=== PATIENT | male | born 1950 | race Caucasian/White ===

== ENCOUNTER 2018-04-14 00:11 | Inpatient (IN) | payer MEDICARE, OTHER ==
[~2018-04-14] VITALS: Ht 175.3 cm; Wt 88.9 kg
[~2018-04-14 00:11] MED LIST: FLOMAX0.4 MG PO; PERCOCET 5-3251 EACH PO; SYNTHROID150 MCG PO
--- NOTE | 2018-04-14 02:05 | NUR ---
PATIENT ARRIVED TO THE FLOOR AMBULATING ON HIS OWN. PATIENT OREINTED TO UNIT AND ROOM. PATIENTS ASSESMENT COMPLETED. PATIENT DENIES ANY PAIN. NO NEEDS NOTED. CALL LIGHT IN REACH. EDUCATED ON NPO STATUS. PATIENT VERBALIZES UNDERSTANDING.
--- NOTE | 2018-04-14 02:49 | NUR ---
PATIENT EDUCATED ON IV FLUIDS. PATIENTS MEDICATIONS GIVEN PER ORDER. PATIENT DENIES ANY PAIN. ALL QUESTIONS ANSWERED. NO NEEDS NOTED. CALL LIGHT IN REACH.
--- NOTE | 2018-04-14 03:57 | NUR ---
PATIENT ASSISTED TO THE RESTROOM A SBA W/FWW. PATIENT ABLE TO VOID. PATIENT IS BACK IN BED RESTING. SCDS, TEDHOSE, CRYO, HEEL PROTECTORS IN PLACE. CRYO REFILLED WITH ICE. PATIENT GIVEN PRN PAIN MEDICATION FOR 4/10 PAIN AND BURNING IN HER LEFT KNEE. NO FURTHER NEEDS NOTED. AAOX3. CALL LIGHT IN REACH.
--- NOTE | 2018-04-14 04:17 | NUR ---
PATIENT IS RESTING IN BED. PATIENT BRIEFLY AWOKEN WHEN ROOM WAS ENTERED TO SCAN 0400 MEDICATIONS. PATIENT DENIES ANY PAIN. NO NEEDS NOTED. CALL LIGHT IN REACH.
--- NOTE | 2018-04-14 05:34 | NUR ---
PATIENT IS RESTING IN BED. PATIENT AWOKE WHEN THE ROOM WAS ENTERED. PATIENT DENIES ANY PAIN. NO NEEDS AT THIS TIME. CALL LIGHT IN REACH.
--- NOTE | 2018-04-14 06:15 | NUR ---
PATIENT IS INDEPENDENT IN THE ROOM. PATIENT IS NPO AT THIS TIME. AAOX3. IV INFUSING.
--- NOTE | 2018-04-14 07:53 | NUR ---
REPORT RECEIVED FROM TONY FIGUEROA AND SN SINGH. PT AWAKE LAYING IN BED. DR BARAHONA IN TO SEE PT. CONSENT SIGNED. TO REMAIN NPO. PT DENIES OTHER NEEDS AT THIS TIME.
--- NOTE | 2018-04-14 07:59 | NUR ---
RECIEVED REPORT FROM TONY FIGUEROA. PT LAYING IN BED. DR BARAHONA IN ROOM. ASSESSED SCROTAL AREA WITH DR BARAHONA. PT TO GO TO SURGERY LATER TODAY. WITNESSED CONSENT.
--- NOTE | 2018-04-14 08:35 | NUR ---
PT ASESSMENT COMPLETE. PT COMPLETING WIPE DOWN. RN SALAS IN TO GET PT FOR SURGERY. AT BEDSIDE. VERBALIZED UNDERSTANDING. ALL QUESTIONS ANSWERED.
--- NOTE | 2018-04-14 10:30 | HP ---
[facility] [address], [place] [address] Signed ADMISSION DATE: 04/14/2018 CHIEF COMPLAINT: Scrotal and perineal abscess. HISTORY OF PRESENTING ILLNESS: Mr. Law is a very pleasant 67-year-old gentleman who was transferred to [facility] late last night from [facility] after presenting to the emergency department there in [place] for evaluation of painful lesions on his scrotum and groin area. The patient lives here in [place] and was set up to be seen by a material chaser at [facility] after he reported some discomfort in the scrotum and groin area to his primary care physician. He was evaluated by the material chaser, who then sent him directly to the emergency department for evaluation of scrotal and perineal abscess. The patient underwent a CT scan at [facility] last evening, which revealed no evidence of any free air, gases, or any significant tracking of what appeared to be left scrotal and left perineal abscess. The patient has been managing in this area on his own for approximately a week now. He does report subjective chills, however, was afebrile on presentation to [facility] last night. He is a relatively healthy gentleman and he is a cyclist who rides upwards of 100 miles at a time. Due to the lack of urologist in the [facility], he was transferred over here to my care at [facility] for definitive treatment of his scrotal and perineal abscess. REVIEW OF SYSTEMS: Positive for subjective chills, perineal and scrotal discomfort. Negative for nausea, vomiting, fevers, diarrhea, or chest pain. PAST MEDICAL HISTORY: 1. History of coronary artery disease and [place] at around age 42. No vascular intervention was performed at that time. 2. Aortic abdominal aneurysm, status post endovascular repair with a stent. 3. Hypothyroidism. 4. Hyperlipidemia. PAST SURGICAL HISTORY: 1. Status post endovascular repair of abdominal aortic aneurysm. 2. Left shoulder surgery. MEDICATIONS: Synthroid 125 mcg p.o. daily. ALLERGIES: Electronically Signed By: JENNIFER BARAHONA MD 04/14/18 1030 PATIENT NAME: HAWK LAW HISTORY AND PHYSICAL DATE OF : 54 REPORT #: [id number] PHYSICIAN: JENNIFER BARAHONA MD PCP: TASHA GENTILE MD REPORT IS CONFIDENTIAL AND NOT TO BE RELEASED WITHOUT AUTHORIZATION [address] [address] Signed Sodium iodide. FAMILY HISTORY: Noncontributory at this time. SOCIAL HISTORY: The patient is an active cyclist and is overall relatively healthy. He is . He denies any alcohol or tobacco use. PHYSICAL EXAMINATION: VITAL SIGNS: The patient's current vitals; his temperature is 97.6 degrees Fahrenheit, pulse is in the 50s, respirations 16, blood pressure is 118/74, and he is saturating 99% on room air. GENERAL: He is an alert and oriented, in no acute distress. He is answering all questions appropriately. CARDIOVASCULAR: Reveals a regular rate and rhythm. LUNGS: Clear bilaterally. ABDOMEN: Soft and nondistended. He is moving all of his extremities equally. GENITOURINARY: Reveals diffuse erythema noted on the bilateral scrotum. He has a circumcised phallus with a glanular meatus. His testicles are descended bilaterally. There is an active abscess located in the inferior aspect of the left hemiscrotum. There is also an abscess on the inferior aspect of the left hemiscrotum as well as the inferior portion of the left buttock. The one of the abscess has opened spontaneously and it appears to have drained. There is also some active necrotic tissue associated with the abscesses. There is no evidence of any obvious tracking on visual inspection. There is no significant foul odor noted on exam today. LABORATORY DATA: Per the [facility], the patient's white blood cell count is 10. I am awaiting the additional values. IMAGING DATA: As stated above, the patient underwent a CAT scan yesterday, which revealed no evidence of obvious gas accumulation within the area and no evidence of any significant tracking of the abscesses at this time. ASSESSMENT: Scrotal and perineal abscess. PLAN: I have notified the patient today of the results of my physical examination findings and my recommendation that he had to the operating room to undergo incision and drainage of Electronically Signed By: JENNIFER BARAHONA MD 04/14/18 1030 PATIENT NAME: HAWK LAW HISTORY AND PHYSICAL DATE OF : 54 REPORT #: [id number] PHYSICIAN: JENNIFER BARAHONA MD PCP: TASHA GENTILE MD REPORT IS CONFIDENTIAL AND NOT TO BE RELEASED WITHOUT AUTHORIZATION [address] [address] Signed both his scrotal and perineal abscesses that are located on the left side. I made it clear to him that this will need to be packed at least twice daily for the next 2 or 3 weeks in order for his wounds to heal properly. The risks and benefits of incision and drainage of his scrotal and perineal abscess were discussed with him today including the risk of bleeding and anesthesia reactions. He understands these risks and would like to proceed. He has been n.p.o. since approximately 0100 last night. In the interim, we will continue broad-spectrum antibiotic therapy in the form of IV vancomycin, Zosyn, and Flagyl. He will likely be deescalated to a single IV antibiotic later today. MD DONNY Alfredo/FARIDEHL /[id number] Copies: ~ Electronically Signed By: JENNIFER BARAHONA MD 04/14/18 1030 PATIENT NAME: HAWK LAW HISTORY AND PHYSICAL DATE OF : 54 REPORT #: [id number] PHYSICIAN: JENNIFER BARAHONA MD PCP: TASHA GENTILE MD REPORT IS CONFIDENTIAL AND NOT TO BE RELEASED WITHOUT AUTHORIZATION
[2018-04-14] MEDS ORDERED: ATORVASTATIN CA20 MG PO (10:32)
--- NOTE | 2018-04-14 10:43 | NUR ---
04/14/18 1043 Mariia Hernandez 1035-PATIENT ARRIVED TO PACU ON 6L NC O2 SAT 99% PATIENT REACTIVE TO VOICE REPORTS "SLEEPY" PACKING TO SCROTAL AREA CDI. MESH UNDERWEAR IN PLACE. RR EVEN. SR 1040-PATIENT DROWSY DENIES PAIN OR NAUSEA. 2L NC O2 SAT 97%
--- NOTE | 2018-04-14 11:25 | NUR ---
PT BACK FROM PACU. REPORT RECEIVED FROM TONY IZAGUIRRE. PT AWAKE AND ALERT.
--- NOTE | 2018-04-14 12:04 | NUR ---
PT AWAKE AND ALERT. VANCO INFUSING. PT TOLERATED WATER AND 2 CUPS OF JELLO. DENIES NAUSEA. GIVEN 0.5 DILAUDID FOR PAIN 6/10 THAT FELT LIKE BURNING. VS STABLE. CALL LIGHT AT SIDE.
--- NOTE | 2018-04-14 12:57 | NUR ---
IV ABX HUNG, PATIENT DENIES ANY PAIN AT THIS TIME, HE IS SITTING UP IN BED EATING LUNCH.
--- NOTE | 2018-04-14 13:35 | NUR ---
PT SITTING UP IN BED. ATE LUNCH. TOLERATING REGULAR DIET. DENIES NAUSEA. O2 BETWEEN 90-93% ON ROOM AIR. PT REMINDED TO TAKE DEEP BREATHS. LUNG SOUNDS CLEAR. EARNESTINE AT BEDSIDE. RATES PAIN 1-2. WILL GET UP AND WALK/TRY TO USE BATHROOM BY NEXT VS CHECK AT 1420. CALL LIGHT AT SIDE. DENIES OTHER NEEDS AT THIS TIME.
--- NOTE | 2018-04-14 13:48 | NUR ---
Vancomycin trough level ordered for 04/15 at 1130
--- NOTE | 2018-04-14 14:31 | NUR ---
POST-OP VITALS COMPLETE. VS STABLE. PT STATES PAIN IS STILL 1-2. APPEARS COMFORTABLE. AT BEDSIDE.
--- NOTE | 2018-04-14 14:58 | NUR ---
CALLED DR BARAHONA REGARDING EARLIER COMMENT OF DEESCALATING OFF OF SOME AB. SHE ORDERED TO STOP FLAYGL NOW AND PUT IN ORDER TO FOLLOW UP WITH DAY SURGERY AFTER DISCHARGE ONCE A DAY FOR PACKING AND DRESSING CHANGE.
--- NOTE | 2018-04-14 15:30 | NUR ---
PT RESTING WITH EYES CLOSED. RESPIRATIONS EVEN AND UNLABORED. APPEARS COMFORTABLE. CALL LIGHT ON BED.
--- NOTE | 2018-04-14 17:01 | NUR ---
Medications reconciled with pharmacy records
--- NOTE | 2018-04-14 17:10 | NUR ---
PT WAS ASLEEP FOR 2-3 HOURS. WOKEN UP. SBA TO BATHROOM. USED URINAL. STATES PAIN IS STILL MANAGEABLE. EDUCATION PROVIDED ON CARE PLAN, PAIN MANAGEMENT, AND ELIMINATION. DENIES OTHER NEEDS AT THIS TIME.
--- NOTE | 2018-04-14 18:26 | NUR ---
PT TO SURGERY WITH DR BARAHONA THIS AM. 0.5 DILAUDID AND NORCO X1 FOR PAIN. RATES PAIN LOW. NAPPED MOST OF AFTERNOON SO ONLY VOIDED X2 SINCE SURGERY. URINE IS MEDIUM YELLOW TO JACQUIE. TOLERATING REGULAR DIET. RESTARTED THYROID MED AFTER SURGERY. RECEIVING VANCO AND ZOSYN. SITES X2 ON SCROTUM AND X1 ON GLUTEAL AREA. DRSG TO BE CHANGED IN THE AM. PT WILL GO INTO DAY SURGERY DAILY FOR 2-3 WEEKS FOR CHANGES. SBA TO BATHROOM. AO X3
--- NOTE | 2018-04-14 18:37 | EKG ---
[facility] [address] [place] [place] [address] Signed Sinus bradycardia Abnormal ECG When compared with ECG of 13-DEC-2016 01:55, No significant change was found Confirmed by TASHA GENTILE MD ([id number]) on 04/14/2018 6:37:16 PM Electronically Signed By: TASHA GENTILE MD 04/14/18 1837 PATIENT NAME: MONICAHAWK MADRID Electrocardiogram DATE OF : 54 PHYSICIAN: TASHA GENTILE MD REPORT #: [id number] REPORT IS CONFIDENTIAL AND NOT TO BE RELEASED WITHOUT AUTHORIZATION
--- NOTE | 2018-04-14 20:00 | NUR ---
RECEIVED REPORT AT 1900, FOUND PT IN BED WITH AT BEDSIDE. PT DENIED PAIN AND HAD NO OTHER NEEDS AT THAT TIME.
--- NOTE | 2018-04-14 20:33 | NUR ---
ROUNDED CHARGE. PATIENT IS RESTING IN BED VISITING WITH . NO PAIN NOTED. NO COMMMENTS, QUESTIONS, OR CONCERNS. CALL LIGHT IN REACH.
--- NOTE | 2018-04-14 22:00 | NUR ---
V/S ARE WDL. 1 TAB NORCO WAS GIVEN AT BED TIME. DRESSING ON SCROTUM HAS SOME DRAINAGE PRESENT. WILL RE-INFORCE IF NEEDED. NO EDEMA WAS NOTED, ALL LOBES ARE CLEAR. NO NEW CONCERNS AT THIS TIME.
--- NOTE | 2018-04-15 00:20 | NUR ---
NEW IV STARTED FOR VANCOMYCIN. PT IS BACK IN BED SLEEPING
--- NOTE | 2018-04-15 02:00 | NUR ---
PT IS TRYING TO SLEEP.
--- NOTE | 2018-04-15 04:02 | NUR ---
PT WAS SLEEPING. ALL LOBES ARE CLEAR, DRAINAGE IS PRESENT AT INCISION SITE. PT DOES NOT WANT TO CHANGE PADDING AT THIS TIME. ALL LOBES ARE CLEAR. NO LEG EDEMA NOTED, PT DENIES PAIN, NO CHANGE IN STATUS FOR THIS PT AT THIS TIME.
--- NOTE | 2018-04-15 06:03 | NUR ---
V/S ARE WDL. DRESSING AROUND SCROTUM HAS SOME DRAINAGE. PT DID NOT WANT DRESSING REINFORCED. PT NEEDED PRN NORCO BEFORE BEDTIME. SLIGHT SCROTAL EDEMA NOTED. ALL LOBES ARE CLEAR, ABD SOUNDS ARE PRESENT, NO LEG EDEMA NOTED.NO NEW CONCERNS AT THIS TIME.
--- NOTE | 2018-04-15 07:29 | NUR ---
REPORT RECEIVED FROM TONY BONE. PT WAS ASLEEP. WOKEN UP AND GIVEN 0.5 DILAUDID. PAIN OF 2/10 PRIOR TO DRESSING CHANGE. DR BARAHONA IN TO DO DRESSING CHANGE.
--- NOTE | 2018-04-15 08:00 | NUR ---
ASSISTED DR BARAHONA AND RN JAMES PECK WITH PACKING OF INCISIONS. PT HAD TO BE GIVEN AN EXTRA DOSE OF DILAUDID FOR PROCEDURAL PAIN. DIRECTIONS GIVEN FOR FOLLOWING UP EVERY MORNING AT DAY SURGERY AND [facility] ON WEEKENDS FOR DRESSING CHANGES. IN ROOM AND BOTH VERBALIZED UNDERSTANDING. INSTRUCTIONS GIVEN ON SHOWERING, LEAVE MESH UNDERWEAR ON AND ALLOW WATER TO RUN OVER BUT NO SCRUBBING. DO NOT REMOVED PACKING.
[2018-04-15] MEDS ORDERED: BACTRIM DS TAB1 EACH PO (08:59)
[2018-04-15] MEDS ORDERED: KEFLEX500 MG PO (09:00)
[2018-04-15] MEDS ORDERED: PERCOCET 5-3251 EACH PO (09:00)
--- NOTE | 2018-04-15 10:31 | NUR ---
PT EDUCATION GIVEN REGARDING SHOWERING, MEDICATIONS, FOLLOW UP APPOINTENTS, RESTRICTIONS ON ACTIVITY. GOING TO DAY SURGERY FOR DAILY DRESSING CHANGES. PT TAKING A NAP UNTIL HIS RETURNS TO PICK HIM UP.
--- NOTE | 2018-04-15 11:04 | NUR ---
PT APPEARS TO BE SLEEPING. HAS DECLINED PAIN MEDS. DC INSTURCTIONS GIVEN. SCHEDULED FOLLOW-UP WITH DAY SURGERY. WILL CALL WHEN RETURNS.
--- NOTE | 2018-04-15 12:10 | NUR ---
PT GIVEN DC INSTRUCTIONS ON FOLLOW-UP, PAIN MANAGEMENT, AND HOME CARE BY TONY FRYE. REINFORCED TEACHING WHEN ARRIVED. KENNY IN TO DISCUSS MEDICATIONS. VERBALIZED UNDERSTANDING. ALL QUESTIONS ANSWERED. 2 IVS REMOVED WNL. BELONGINGS RETURNED. VS STABLE. OUT IN WHEELCHAIR TO HOME WITH .
--- NOTE | 2018-04-15 18:36 | OR ---
[facility] [address], [place] [address] Signed DATE OF OPERATION: 04/14/2018 SURGEON: Jennifer Barahona MD PREOPERATIVE DIAGNOSIS: Left scrotal and perianal abscess. POSTOPERATIVE DIAGNOSES: 1. Left scrotal and perineal abscess. 2. Right inferior gluteal abscess. NAMES OF PROCEDURES: Incision and drainage of left hemiscrotal/perianal/inferior gluteal abscess. ANESTHESIA: General. ESTIMATED BLOOD LOSS: 25 mL. COMPLICATIONS: None. SPECIMENS: Anaerobic and aerobic wound cultures were obtained. DRAINS: None. INDICATIONS FOR PROCEDURE: Mr. Law is a very pleasant 67-year-old gentleman who presented to the emergency department at [facility] in [facility] yesterday evening after being referred by a help desk associate at [facility]. The patient had been experiencing significant perineal and left scrotal discomfort for approximately 1 week after experiencing some chafing during a 100-mile bike ride. The patient is an avid cyclist and rides his bicycle practically on a daily basis. He had noticed some erythema and chafing about 2 weeks ago; however, he continued to ride his bike and noticed that his left hemiscrotum and perineum became exquisitely more tender to the point where there were 3 areas that appeared to be spontaneously draining purulent fluid. He denies any fevers, but did experience subjective chills on occasion. He was transferred here and admitted to my service on Electronically Signed By: JENNIFER BARAHONA MD 04/15/18 1836 PATIENT NAME: HAWK LAW OPERATIVE REPORT DATE OF : 54 REPORT #: [id number] PHYSICIAN: JENNIFER BARAHONA MD PCP: TASHA GENTILE MD REPORT IS CONFIDENTIAL AND NOT TO BE RELEASED WITHOUT AUTHORIZATION [address] [address] Signed the evening of April 13/early hours of April 14. He has been on broad-spectrum antibiotic coverage and exam confirms the presence of 3 separate well defined abscesses that required drainage. After discussion of the risks and benefits of the procedure, the patient has agreed to undergo an incision and drainage of the 3 abscesses located at the left scrotum, perineum, and right inferior buttock. FINDINGS: Inspection of the external genitalia reveals a normal uncircumcised phallus with a glanular meatus. Testicles are descended bilaterally. There is diffuse erythema of the bilateral scrotum noted. On inspection of the left hemiscrotum, there is a 2 x 5 cm abscess with associated skin necrosis. There was another abscess just inferior to the left hemiscrotum, which was actively draining purulent fluid. There was a third abscess located in the inferior gluteal fold on the right side that has reached a head, but has yet to be drained. All 3 were exquisitely tender to palpation and appear to be full of purulent fluid. There was no evidence of any skin necrosis noted. All 3 abscesses were incised, irrigated and debrided of any necrotic tissue. They were then packed with 0.5 inch iodoform packing. The deepest pocket was by far the abscess associated with the left hemiscrotum, which I was able to pack at least 2 feet of packing within the abscess cavity of the left hemiscrotum. The incision and drainage went well and I was able to debride a decent amount of necrotic tissue and thoroughly irrigated all of the areas with hydrogen peroxide and sterile saline solution. DESCRIPTION OF PROCEDURE: After informed consent was obtained, the patient was taken back to the operating room. He was transferred from the [facility] to the operating room table, where general anesthesia was induced. He was placed in the high dorsal lithotomy position and his genitalia were prepped and draped in the standard sterile fashion. I began my debridement of the largest abscess, which was located in the left hemiscrotum. I had to excise a good deal of necrotic scrotal skin, measuring approximately 2 x 5 cm in dimension. I then debrided the abscess cavity of which there was a significant amount of necrotic tissue associated with this cavity. The area was then irrigated thoroughly with hydrogen peroxide solution. I then debrided the other 2 areas, one of which was just inferior to the left hemiscrotum and the other was in the inferior right-sided gluteal fold. These abscess cavities were not as deep as the initial cavity. They were opened up and again necrotic tissue was debrided out from these areas. They were then thoroughly irrigated with hydrogen peroxide and sterile saline solution. All 3 areas were then packed with 0.5 inch iodoform packing in the routine fashion. The left hemiscrotal abscess pocket was packed with approximately 2 feet of 0.5 inch iodoform packing strip. The areas were then cleaned and dried, and hemostasis was achieved and maintained. ABDs followed by scrotal fluffs were then placed along with a scrotal support. The procedure was then terminated. The patient will now be taken to the postanesthesia care unit in stable Electronically Signed By: JENNIFER BARAHONA MD 04/15/18 1836 PATIENT NAME: HAWK LAW OPERATIVE REPORT DATE OF : 54 REPORT #: [id number] PHYSICIAN: JENNIFER BARAHONA MD PCP: TASHA GENTILE MD REPORT IS CONFIDENTIAL AND NOT TO BE RELEASED WITHOUT AUTHORIZATION [facility] [address] [place] [place] [address] Signed condition. DISPOSITION: The patient's diet will now be restarted and advanced as tolerated. I will deescalate his antibiotics by discontinuing the Flagyl at this time. I will continue the vancomycin and Zosyn for now. Wound cultures were obtained during the incision and drainage today. I will follow up these cultures when they are available in the next 2-3 days. The patient's wound will be packed tomorrow morning and then he will be placed on the schedule to be packed on a daily basis in day surgery. We will continue to pack his wounds with 0.5 inch iodoform strip packing tape. If all goes well and if he remains afebrile, he will likely be discharged to home tomorrow on oral antibiotics. MD DONNY Alfredo/PATRICIA /[id number] Copies: ~ Electronically Signed By: JENNIFER BARAHONA MD 04/15/18 1836 PATIENT NAME: MONICA,HAWK MERCY OPERATIVE REPORT DATE OF : 54 REPORT #: [id number] PHYSICIAN: JENNIFER BARAHONA MD PCP: TASHA GENTILE MD REPORT IS CONFIDENTIAL AND NOT TO BE RELEASED WITHOUT AUTHORIZATION
== END 2018-04-15 12:10 | disposition home or self-care (01) | DRG 988 ==
LOC: MS 00:11
PROVIDERS: ADMIT Urology
PROC: 0J990ZZ Drainage of Buttock Subcutaneous Tissue and Fascia, Open Approach (ICD-10-PCS; 2018-04-14)
PROC: 0J9B0ZZ Drainage of Perineum Subcutaneous Tissue and Fascia, Open Approach (ICD-10-PCS; 2018-04-14)
PROC: 0V950ZZ Drainage of Scrotum, Open Approach (ICD-10-PCS; principal; 2018-04-14 09:00)
DX: N49.2 Inflammatory disorders of scrotum (principal); L02.215 Cutaneous abscess of perineum; L02.31 Cutaneous abscess of buttock; I96 Gangrene, not elsewhere classified; I25.10 Atherosclerotic heart disease of native coronary artery without angina pectoris; I25.2 Old myocardial infarction; E03.9 Hypothyroidism, unspecified; E78.5 Hyperlipidemia, unspecified; Z79.899 Other long term (current) drug therapy; Z88.8 Allergy status to other drugs, medicaments and biological substances
CPT/HCPCS: 00920; 36415; 80048; 85025; 87070; 87075; 87077; 87186; 87205; 93005; 93010; 94760; 94762; J1100; J1170; J1885; J2250; J2405; J2543; J2704; J3010; J3370; J7030; J7050

== ENCOUNTER 2021-12-12 23:51 | Emergency (ER) | payer MEDICARE, OTHER ==
[~2021-12-12] VITALS: Ht 175.3 cm; Wt 83.9 kg
[~2021-12-12 23:51] MED LIST changes: +ATORVASTATIN CA20 MG PO; +BACTRIM DS TAB1 EACH PO; +KEFLEX500 MG PO
[2021-12-13] MEDS ORDERED: ROSUVASTATIN CAL5 MG PO (00:06)
[2021-12-13] MEDS ORDERED: EUTHYROX150 MCG PO (00:06)
[2021-12-13] MEDS ORDERED: CLOPIDOGREL75 MG PO (00:06)
--- NOTE | 2021-12-13 21:58 | EKG ---
[facility] [address] [place] [place] [address] Signed Sinus bradycardia with 1st degree AV block Nonspecific T wave abnormality Abnormal ECG When compared with ECG of 14-APR-2018 09:00, [place] interval has increased Nonspecific T wave abnormality now evident in Anterolateral leads Confirmed by TIM OLSEN MD ([id number]) on 12/13/2021 9:58:34 PM Electronically Signed By: TIM OLSEN MD 12/13/21 2158 PATIENT NAME: HAWK ANDERSON Electrocardiogram DATE OF : 54 PHYSICIAN: TIM OLSEN MD REPORT #: [id number] REPORT IS CONFIDENTIAL AND NOT TO BE RELEASED WITHOUT AUTHORIZATION
== END 2021-12-13 01:30 | disposition home or self-care (01) ==
LOC: ED 23:51
DX: I10 Essential (primary) hypertension (principal); E03.9 Hypothyroidism, unspecified; Z88.8 Allergy status to other drugs, medicaments and biological substances; Z79.899 Other long term (current) drug therapy
CPT/HCPCS: 71045; 80053; 83735; 83880; 84484; 85025; 93005; 93010; 99285-25